=== PATIENT | male | born 1955 ===

== ENCOUNTER 2021-03-20 16:08 | Inpatient (IN) | payer MEDICARE, OTHER ==
[~2021-03-20] VITALS: Ht 180.3 cm; Wt 98.7 kg
[2021-03-20] MEDS ORDERED: PROPOFOL 100 ML IV ONE (20:43)
[2021-03-20] MEDS ORDERED: FENTANYL PF 100 MCG/2ML IVPush PRN ×2 (21:30)
[2021-03-20] MEDS ORDERED: AMPICILLIN/SULBACTAM 3 GM in SODIUM CHLORIDE 0.9% 100 ML IV SCH (21:30)
[2021-03-20] MEDS ORDERED: D5%-0.45NACL+KCL 20MEQ 1,000 ML IV SCH (21:30)
[2021-03-20] MEDS ORDERED: SODIUM CHLORIDE 0.9% 1,000ML IVBOLUS ONE (21:30)
[2021-03-20] MEDS ORDERED: BISACODYL 10 MG SUPP PR PRN (21:30)
[2021-03-20] MEDS ORDERED: ONDANSETRON 2MG/ML, 2ML IV PRN (21:30)
[2021-03-20] MEDS ORDERED: PLEASE ENTER ALLERGIES MC SCH (21:30)
[2021-03-20] MEDS ORDERED: NOREPINEPHRINE 8 MG in SODIUM CHLORIDE 0.9% 242 ML IV PRN (21:30)
[2021-03-20] MEDS ORDERED: PHARMACY MAY ADJ FOR RENAL FX MC SCH (21:30)
[2021-03-20] MEDS ORDERED: DEXTROSE 50%, 50ML SYRINGE IVPush PRN (21:30)
[2021-03-20] MEDS ORDERED: ACETAMINOPHEN 325 MG TABLET PO PRN (21:30)
[2021-03-20] MEDS ORDERED: DEXTROSE 4 GM TAB.CHEW PO PRN (21:30)
[2021-03-20] MEDS ORDERED: PHARMACY MAY ADJ FOR RENAL FX MC PRN (21:30)
[2021-03-20] MEDS ORDERED: GLUCAGON 1 MG IM PRN (21:30)
[2021-03-20] MEDS ORDERED: PLEASE ENTER HEIGHT AND WEIGHT MC SCH (21:30)
[2021-03-20 21:31] LABS: MEAN CORPUSCULAR HGB CONC 34.3 g/dL (33.2-36.2); MEAN PLATELET VOLUME 9.8 fL (7.4-10.4); PLATELET COUNT 264 x10^3/uL (130-400); RED BLOOD COUNT 3.95 x10^6/uL (4.38-5.82)
[2021-03-20 21:40] LABS: CHLORIDE 96 mmol/L (98-107)
[2021-03-20 21:41] LABS: ALANINE AMINOTRANSFERASE 15 U/L (12-78); ALBUMIN 1.9 g/dL (3.4-5.0); CALCIUM 8.1 mg/dL (8.5-10.1)
[2021-03-20 21:44] LABS: ALKALINE PHOSPHATASE 117 U/L (45-117); BILIRUBIN,TOTAL 0.5 mg/dL (0.2-1.0); CREATINE KINASE, TOTAL 78 U/L (39-308); TOTAL PROTEIN 6.2 g/dL (6.4-8.2); TRIGLYCERIDES 221 mg/dL (50-200)
[2021-03-20 21:48] LABS: ANION GAP 10 mmol/L (5-15)
[2021-03-20] MEDS ORDERED: PIPERACILLIN/TAZO 3.375 GM in DEXTROSE 5% 50 ML IV SCH (22:00)
[2021-03-20] MEDS ORDERED: LACTATED RINGERS 1,000 ML IVBOLUS ONE (22:00)
[2021-03-20] MEDS: SODIUM CHLORIDE 0.9% 1,000 ML IV SCH (22:02)
[2021-03-20] MEDS: PANTOPRAZOLE 40 MG IV IVPush SCH (22:11)
[2021-03-20] MEDS: SODIUM CHLORIDE FLUSH 10ML SYR IVF SCH (22:12)
[2021-03-20] MEDS: REGULAR INSULIN 100 UNITS in SODIUM CHLORIDE 0.9% 99 ML IV PRN (22:15)
[2021-03-20] MEDS: PROPOFOL 100 ML IV PRN (22:22)
[2021-03-20 22:25] LABS: BAND#(MANUAL) 2.52 x10^3/uL; BANDS%(MANUAL) 10 % (0-7); LYMPH#(MANUAL) 1.01 x10^3/uL (1-3.4); LYMPHS% (MANUAL) 4 % (22-44); MONOS#(MANUAL) 1.26 x10^3/uL (0.3-2.7); MONOS% (MANUAL) 5 % (2-9); SEG#(MANUAL) 20.41 x10^3/uL (1.8-6.8); SEGS% (MANUAL) 81 % (42-75)
[2021-03-20 22:26] LABS: ANISOCYTOSIS 1+; ECHINOCYTES 1+
[2021-03-20 22:27] LABS: <PLATELET ESTIMATE> ADEQUATE; LARGE PLATELETS 1+
[2021-03-20] MEDS: PIPERACILLIN/TAZO 2.25 GM in DEXTROSE 5% 50 ML IVPB SCH (22:48)
[2021-03-20] MEDS ORDERED: CALCIUM GLUCONATE 4.6 MEQ in SODIUM CHLORIDE 0.9% 50 ML IV ONE (23:00)
[2021-03-20 23:04] LABS: INTERNATIONAL NORMALIZED RATIO 1.04 (0.93-1.1); PROTHROMBIN TIME 11.1 Seconds (9.6-11.5)
[2021-03-20] MEDS ORDERED: PARO30TA45 PO (23:52)
[2021-03-21 00:18] LABS: MICROSCOPIC INDICATED
[2021-03-21] MEDS: NOREPINEPHRINE 8 MG in SODIUM CHLORIDE 0.9% 242 ML IV PRN ×2 (00:49→16:20)
[2021-03-21 01:24] LABS: ANION GAP 12 mmol/L (5-15); CALCIUM 7.6 mg/dL (8.5-10.1); CHLORIDE 99 mmol/L (98-107); CREATININE 2.04 mg/dL (0.7-1.3)
[2021-03-21] MEDS ORDERED: LACTATED RINGERS 1,000 ML IVBOLUS ONE ×2 (02:30→05:30)
[2021-03-21] MEDS: SODIUM CHLORIDE 0.9% 1,000 ML IV SCH ×2 (03:54→23:04)
[2021-03-21 04:37] LABS: MEAN CORPUSCULAR HEMOGLOBIN 29.9 pg (27.5-34.5); MEAN CORPUSCULAR HGB CONC 34.2 g/dL (33.2-36.2); MEAN PLATELET VOLUME 9.5 fL (7.4-10.4); PLATELET COUNT 191 x10^3/uL (130-400); RED BLOOD COUNT 3.37 x10^6/uL (4.38-5.82); RED CELL DISTRIBUTION WIDTH 15.2 % (9.4-14.8)
[2021-03-21] MEDS: PIPERACILLIN/TAZO 2.25 GM in DEXTROSE 5% 50 ML IVPB SCH (04:43)
[2021-03-21 04:48] LABS: ANION GAP 9 mmol/L (5-15); CALCIUM 7.4 mg/dL (8.5-10.1); CHLORIDE 102 mmol/L (98-107); CREATININE 1.79 mg/dL (0.7-1.3)
[2021-03-21 05:44] LABS: BAND#(MANUAL) 3.01 x10^3/uL; BANDS%(MANUAL) 17 % (0-7); LYMPH#(MANUAL) 0.89 x10^3/uL (1-3.4); LYMPHS% (MANUAL) 5 % (22-44); MONOS#(MANUAL) 1.06 x10^3/uL (0.3-2.7); MONOS% (MANUAL) 6 % (2-9); SEG#(MANUAL) 12.74 x10^3/uL (1.8-6.8); SEGS% (MANUAL) 72 % (42-75)
[2021-03-21 05:45] LABS: <PLATELET ESTIMATE> ADEQUATE; <PLT MORPHOLOGY> NORMAL PLT MORPH; ANISOCYTOSIS 1+
[2021-03-21] MEDS: PROPOFOL 100 ML IV PRN ×2 (06:51→21:47)
[2021-03-21 07:25] LABS: % IRON SATURATION 13 % (20-55); CREATINE KINASE, TOTAL 56 U/L (39-308); IRON LEVEL 19 mcg/dL (65-175); TOTAL IRON BINDING CAPACITY 142 mcg/dL (250-450)
[2021-03-21 07:27] LABS: C-REACTIVE PROTEIN, QUANT > 19.00 mg/dL (0.02-0.49)
[2021-03-21 07:41] LABS: HCT (SEDRATE) 29.4 % (39.2-51.8)
[2021-03-21] MEDS: REGULAR INSULIN 100 UNITS in SODIUM CHLORIDE 0.9% 99 ML IV PRN ×2 (08:47→20:27)
[2021-03-21] MEDS: HEPARIN 5,000 UNITS/ML, 1ML SQ SCH ×2 (08:48→16:39)
[2021-03-21] MEDS: PANTOPRAZOLE 40 MG IV IVPush SCH ×2 (08:48→21:47)
[2021-03-21] MEDS: SODIUM CHLORIDE FLUSH 10ML SYR IVF SCH ×3 (08:48→22:11)
[2021-03-21] MEDS ORDERED: PANTOPRAZOLE 40 MG IV IVPush SCH (09:00)
[2021-03-21 09:17] LABS: ANION GAP 8 mmol/L (5-15); CALCIUM 7.8 mg/dL (8.5-10.1); CHLORIDE 103 mmol/L (98-107)
[2021-03-21] MEDS: PIPERACILLIN/TAZO 3.375 GM in DEXTROSE 5% 50 ML IV SCH ×3 (09:42→19:27)
--- NOTE | 2021-03-21 11:25 | NUR ---
IF TUBE FEED RECOMMENDATION NEEDED: recommend Vital HP: goal on propofol: 55 ml/hr, OFF propofol: 65 ml/hr Addendum: 03/21/21 at [address] Amended: Links added.
[2021-03-21] MEDS ORDERED: INSULIN GLARGINE 100 UNITS/ML, PEN SQ-INSULIN ONE (12:30)
[2021-03-21] MEDS ORDERED: DEXTROSE 50%, 50ML SYRINGE IVPush PRN (12:30)
[2021-03-21] MEDS ORDERED: GLUCAGON 1 MG IM PRN (12:30)
[2021-03-21] MEDS ORDERED: DEXTROSE 4 GM TAB.CHEW PO PRN (12:30)
[2021-03-21] MEDS ORDERED: POTASSIUM CHLORIDE 10 MEQ in LACTATED RINGERS 1,000 ML IV SCH (13:00)
--- NOTE | 2021-03-21 13:11 | NUR ---
Tube Feeds: Vital HP: goal ON propofol: 55 ml/hr, OFF propofol: 65 ml/hr Addendum: 03/21/21 at [address] Amended: Links added.
[2021-03-21] MEDS ORDERED: INSULIN LISPRO 100 UNITS/ML, PEN ONE (13:16)
[2021-03-21] MEDS: MIDODRINE 5 MG TABLET PO SCH ×2 (13:26→21:47)
[2021-03-21] MEDS ORDERED: INSULIN LISPRO 100 UNITS/ML, PEN SQ-INSULIN SCH ×2 (16:00→21:00)
[2021-03-21 17:00] LABS: ANION GAP 14 mmol/L (5-15); CALCIUM 7.8 mg/dL (8.5-10.1); CHLORIDE 104 mmol/L (98-107); CREATININE 1.55 mg/dL (0.7-1.3)
[2021-03-21 19:03] LABS: ACETONE, SERUM Large (80mg/dL) (Negative)
[2021-03-21] MEDS: D5%-0.45NACL+KCL 20MEQ 1,000 ML IV SCH (20:25)
[2021-03-21] MEDS ORDERED: INSULIN GLARGINE 100 UNITS/ML, PEN SQ-INSULIN SCH (21:00)
[2021-03-21 22:12] LABS: ANION GAP 11 mmol/L (5-15); CALCIUM 7.9 mg/dL (8.5-10.1); CHLORIDE 105 mmol/L (98-107)
[2021-03-21] MEDS ORDERED: POTASSIUM CHLORIDE 20 MEQ PACKET PO/NG ONE (23:00)
[2021-03-22] MEDS: HEPARIN 5,000 UNITS/ML, 1ML SQ SCH ×3 (00:40→17:00)
[2021-03-22 00:45] LABS: MICROSCOPIC INDICATED
[2021-03-22 00:52] LABS: CREATININE,URINE RANDOM 47.5 mg/dL
[2021-03-22] MEDS: PIPERACILLIN/TAZO 3.375 GM in DEXTROSE 5% 50 ML IV SCH ×4 (01:37→19:44)
[2021-03-22 02:38] LABS: ANION GAP 6 mmol/L (5-15); CALCIUM 7.8 mg/dL (8.5-10.1); CHLORIDE 108 mmol/L (98-107); CREATININE 1.48 mg/dL (0.7-1.3)
[2021-03-22] MEDS ORDERED: POTASSIUM CHLORIDE 20 MEQ PACKET NG ONE (03:30)
[2021-03-22] MEDS: SODIUM CHLORIDE 0.9% 1,000 ML IV SCH (04:00)
[2021-03-22 05:46] LABS: MEAN CORPUSCULAR HEMOGLOBIN 29.6 pg (27.5-34.5); MEAN CORPUSCULAR HGB CONC 33.2 g/dL (33.2-36.2); MEAN PLATELET VOLUME 9.9 fL (7.4-10.4); PLATELET COUNT 239 x10^3/uL (130-400); RED CELL DISTRIBUTION WIDTH 15.4 % (9.4-14.8)
[2021-03-22 05:55] LABS: ALBUMIN 1.5 g/dL (3.4-5.0); ANION GAP 7 mmol/L (5-15); CHLORIDE 108 mmol/L (98-107)
[2021-03-22 05:59] LABS: ALANINE AMINOTRANSFERASE 11 U/L (12-78); ALKALINE PHOSPHATASE 106 U/L (45-117); BILIRUBIN,TOTAL 0.5 mg/dL (0.2-1.0); CREATININE 1.42 mg/dL (0.7-1.3); TOTAL PROTEIN 5.4 g/dL (6.4-8.2)
[2021-03-22 06:22] LABS: BAND#(MANUAL) 0.54 x10^3/uL; BANDS%(MANUAL) 3 % (0-7); LYMPHS% (MANUAL) 16 % (22-44); MONOS#(MANUAL) 0.36 x10^3/uL (0.3-2.7); MONOS% (MANUAL) 2 % (2-9); SEGS% (MANUAL) 79 % (42-75)
[2021-03-22 06:24] LABS: <PLATELET ESTIMATE> ADEQUATE; <PLT MORPHOLOGY> NORMAL PLT MORPH; ANISOCYTOSIS 1+
[2021-03-22] MEDS: D5%-0.45NACL+KCL 20MEQ 1,000 ML IV SCH (06:37)
[2021-03-22] MEDS: REGULAR INSULIN 100 UNITS in SODIUM CHLORIDE 0.9% 99 ML IV PRN (06:39)
[2021-03-22] MEDS: SODIUM CHLORIDE FLUSH 10ML SYR IVF SCH ×3 (09:00→21:15)
[2021-03-22] MEDS: PANTOPRAZOLE 40 MG IV IVPush SCH ×2 (09:37→21:14)
[2021-03-22] MEDS: MIDODRINE 5 MG TABLET PO SCH ×3 (09:38→21:14)
[2021-03-22] MEDS: ALBUMIN HUMAN 25%, 25GM/100ML IV SCH ×2 (09:38→17:59)
[2021-03-22 10:44] LABS: ANION GAP 7 mmol/L (5-15); CALCIUM 7.9 mg/dL (8.5-10.1); CHLORIDE 109 mmol/L (98-107)
[2021-03-22 11:09] LABS: ACETONE, SERUM Negative (Negative)
[2021-03-22] MEDS: INSULIN LISPRO 100 UNITS/ML, PEN SQ-INSULIN SCH ×3 (12:00→21:15)
[2021-03-22] MEDS ORDERED: INSULIN GLARGINE 100 UNITS/ML, PEN ONE (12:08)
[2021-03-22] MEDS: LACTATED RINGERS 1,000 ML IV SCH (12:19)
[2021-03-22] MEDS ORDERED: INSULIN GLARGINE 100 UNITS/ML, PEN SQ-INSULIN ONE (13:00)
[2021-03-22 15:12] LABS: ANION GAP 8 mmol/L (5-15); CALCIUM 7.9 mg/dL (8.5-10.1); CHLORIDE 109 mmol/L (98-107); CREATININE 1.23 mg/dL (0.7-1.3)
[2021-03-22] MEDS ORDERED: INSULIN LISPRO 100 UNITS/ML, PEN SQ-INSULIN SCH (15:30)
[2021-03-22 16:41] LABS: CLOSTRIDIUM DIFFICILE ANTIGEN NEGATIVE; CLOSTRIDIUM DIFFICILE TOXIN NEGATIVE (Negative)
[2021-03-22] MEDS ORDERED: DIPHENOXYLATE/ATROPINE TABLET PO PRN (17:00)
[2021-03-22] MEDS ORDERED: INSULIN GLARGINE 100 UNITS/ML, PEN SQ-INSULIN SCH (21:00)
[2021-03-23] MEDS: HEPARIN 5,000 UNITS/ML, 1ML SQ SCH ×3 (01:07→17:53)
[2021-03-23] MEDS: ALBUMIN HUMAN 25%, 25GM/100ML IV SCH ×2 (01:07→09:10)
[2021-03-23] MEDS: PIPERACILLIN/TAZO 3.375 GM in DEXTROSE 5% 50 ML IV SCH ×4 (02:25→20:50)
[2021-03-23] MEDS: MIDODRINE 5 MG TABLET PO SCH ×4 (02:33→20:33)
[2021-03-23 04:33] LABS: BASOPHILS % (AUTO) 1 % (0-1); EOSINOPHILS % (AUTO) 1 % (1-7); LYMPHOCYTES % (AUTO) 12 % (22-44); MEAN CORPUSCULAR HEMOGLOBIN 29.7 pg (27.5-34.5); MEAN CORPUSCULAR HGB CONC 33.4 g/dL (33.2-36.2); MEAN PLATELET VOLUME 9.6 fL (7.4-10.4); MONOCYTES % (AUTO) 9 % (2-9); NEUTROPHILS % (AUTO) 78 % (42-75); PLATELET COUNT 221 x10^3/uL (130-400); RED BLOOD COUNT 3.24 x10^6/uL (4.38-5.82); RED CELL DISTRIBUTION WIDTH 15.5 % (9.4-14.8)
[2021-03-23 04:48] LABS: ANION GAP 6 mmol/L (5-15); CALCIUM 7.5 mg/dL (8.5-10.1); CHLORIDE 110 mmol/L (98-107)
[2021-03-23 04:49] LABS: CREATININE 1.23 mg/dL (0.7-1.3)
[2021-03-23] MEDS ORDERED: INSULIN LISPRO 100 UNITS/ML, PEN SQ-INSULIN SCH (07:00)
[2021-03-23] MEDS: INSULIN LISPRO 100 UNITS/ML, PEN SQ-INSULIN SCH ×7 (07:36→20:34)
[2021-03-23] MEDS: INSULIN GLARGINE 100 UNITS/ML, PEN SQ-INSULIN SCH ×2 (07:37→20:35)
[2021-03-23] MEDS: PANTOPRAZOLE 40 MG IV IVPush SCH (09:10)
[2021-03-23] MEDS: SODIUM CHLORIDE FLUSH 10ML SYR IVF SCH ×2 (09:11→20:33)
[2021-03-23] MEDS: PAROXETINE 20 MG TABLET PO SCH (09:11)
[2021-03-23] MEDS: LACTATED RINGERS 1,000 ML IV SCH (09:12)
[2021-03-23 15:40] VITALS: BP 129/63
[2021-03-23 18:40] VITALS: BP 124/69
[2021-03-23] MEDS: TAMSULOSIN 0.4 MG CAP.ER.24H PO SCH (20:33)
[2021-03-23] MEDS ORDERED: FAMOTIDINE 20 MG TABLET PO SCH (21:00)
[2021-03-24] MEDS: HEPARIN 5,000 UNITS/ML, 1ML SQ SCH ×3 (00:30→17:20)
[2021-03-24] MEDS: PAROXETINE 20 MG TABLET PO SCH (00:30)
[2021-03-24 02:00] VITALS: BP 117/68
[2021-03-24 02:26] VITALS: BP 113/73
[2021-03-24] MEDS: PIPERACILLIN/TAZO 3.375 GM in DEXTROSE 5% 50 ML IV SCH ×2 (03:00→09:23)
[2021-03-24] MEDS: MIDODRINE 5 MG TABLET PO SCH ×4 (03:00→21:00)
[2021-03-24 06:41] LABS: BASOPHILS % (AUTO) 1 % (0-1); EOSINOPHILS % (AUTO) 2 % (1-7); LYMPHOCYTES % (AUTO) 20 % (22-44); MEAN CORPUSCULAR HEMOGLOBIN 29.3 pg (27.5-34.5); MEAN CORPUSCULAR HGB CONC 32.8 g/dL (33.2-36.2); MEAN PLATELET VOLUME 9.1 fL (7.4-10.4); MONOCYTES % (AUTO) 12 % (2-9); NEUTROPHILS % (AUTO) 65 % (42-75); PLATELET COUNT 249 x10^3/uL (130-400); RED BLOOD COUNT 3.44 x10^6/uL (4.38-5.82); RED CELL DISTRIBUTION WIDTH 15.2 % (9.4-14.8)
[2021-03-24 06:54] LABS: ANION GAP 7 mmol/L (5-15); CALCIUM 7.7 mg/dL (8.5-10.1); CHLORIDE 109 mmol/L (98-107); CREATININE 1.01 mg/dL (0.7-1.3)
[2021-03-24] MEDS: INSULIN LISPRO 100 UNITS/ML, PEN SQ-INSULIN SCH ×6 (07:00→22:30)
[2021-03-24 07:50] VITALS: BP 117/66
[2021-03-24] MEDS: INSULIN GLARGINE 100 UNITS/ML, PEN SQ-INSULIN SCH ×2 (08:35→22:30)
[2021-03-24] MEDS: SODIUM CHLORIDE FLUSH 10ML SYR IVF SCH ×2 (08:41→21:00)
[2021-03-24] MEDS: ERTAPENEM 1 GM in SODIUM CHLORIDE 0.9% 50 ML IV SCH (11:45)
[2021-03-24 15:18] VITALS: BP 111/57
[2021-03-24 20:54] VITALS: BP 121/65
[2021-03-24] MEDS: FAMOTIDINE 20 MG TABLET PO SCH (21:00)
[2021-03-24] MEDS: TAMSULOSIN 0.4 MG CAP.ER.24H PO SCH (21:00)
[2021-03-25] VITALS (7 sets, daily range): BP systolic 108–127; BP diastolic 64–80
[2021-03-25] MEDS: HEPARIN 5,000 UNITS/ML, 1ML SQ SCH ×3 (01:28→18:54)
[2021-03-25] MEDS: MIDODRINE 5 MG TABLET PO SCH ×4 (03:17→21:59)
[2021-03-25 05:57] LABS: BASOPHILS % (AUTO) 3 % (0-1); EOSINOPHILS % (AUTO) 2 % (1-7); LYMPHOCYTES % (AUTO) 23 % (22-44); MEAN CORPUSCULAR HEMOGLOBIN 29.7 pg (27.5-34.5); MEAN CORPUSCULAR HGB CONC 33.3 g/dL (33.2-36.2); MEAN PLATELET VOLUME 9.2 fL (7.4-10.4); MONOCYTES % (AUTO) 10 % (2-9); NEUTROPHILS % (AUTO) 63 % (42-75); PLATELET COUNT 316 x10^3/uL (130-400); RED BLOOD COUNT 3.54 x10^6/uL (4.38-5.82); RED CELL DISTRIBUTION WIDTH 15.1 % (9.4-14.8)
[2021-03-25] MEDS: INSULIN LISPRO 100 UNITS/ML, PEN SQ-INSULIN SCH ×7 (08:40→21:58)
[2021-03-25] MEDS ORDERED: METOPROLOL 1 MG/ML, 5ML ONE (08:47)
[2021-03-25] MEDS: PAROXETINE 20 MG TABLET PO SCH (08:57)
[2021-03-25] MEDS: FAMOTIDINE 20 MG TABLET PO SCH ×2 (08:57→21:59)
[2021-03-25] MEDS ORDERED: METOPROLOL 1 MG/ML, 5ML IVPush ONE (09:00)
[2021-03-25] MEDS: SODIUM CHLORIDE FLUSH 10ML SYR IVF SCH ×2 (11:23→21:00)
[2021-03-25] MEDS: ERTAPENEM 1 GM in SODIUM CHLORIDE 0.9% 50 ML IV SCH (11:23)
[2021-03-25] MEDS: INSULIN GLARGINE 100 UNITS/ML, PEN SQ-INSULIN SCH ×2 (11:24→21:59)
[2021-03-25] MEDS: TAMSULOSIN 0.4 MG CAP.ER.24H PO SCH (21:59)
[2021-03-26] MEDS: HEPARIN 5,000 UNITS/ML, 1ML SQ SCH ×3 (00:54→16:59)
[2021-03-26 00:57] VITALS: BP 136/81
[2021-03-26] MEDS: MIDODRINE 5 MG TABLET PO SCH ×4 (03:00→21:45)
[2021-03-26 04:58] VITALS: BP 131/74
[2021-03-26] MEDS ORDERED: LORazepam 2 MG/ML, 1ML IVPush ONE (05:30)
[2021-03-26 05:51] LABS: BASOPHILS % (AUTO) 0 % (0-1); EOSINOPHILS % (AUTO) 2 % (1-7); LYMPHOCYTES % (AUTO) 20 % (22-44); MEAN CORPUSCULAR HEMOGLOBIN 30.5 pg (27.5-34.5); MEAN CORPUSCULAR HGB CONC 34.1 g/dL (33.2-36.2); MEAN PLATELET VOLUME 8.5 fL (7.4-10.4); MONOCYTES % (AUTO) 9 % (2-9); NEUTROPHILS % (AUTO) 69 % (42-75); PLATELET COUNT 371 x10^3/uL (130-400); RED BLOOD COUNT 3.58 x10^6/uL (4.38-5.82); RED CELL DISTRIBUTION WIDTH 15.5 % (9.4-14.8)
[2021-03-26 06:19] LABS: ANION GAP 4 mmol/L (5-15); CALCIUM 7.8 mg/dL (8.5-10.1); CHLORIDE 107 mmol/L (98-107); CREATININE 0.78 mg/dL (0.7-1.3)
[2021-03-26 06:37] VITALS: BP 115/71
[2021-03-26] MEDS: DOXAZOSIN 2MG TABLET PO SCH (08:33)
[2021-03-26] MEDS: PAROXETINE 20 MG TABLET PO SCH (08:34)
[2021-03-26] MEDS: FAMOTIDINE 20 MG TABLET PO SCH ×2 (08:34→21:43)
[2021-03-26] MEDS: SODIUM CHLORIDE FLUSH 10ML SYR IVF SCH ×2 (09:03→21:00)
[2021-03-26] MEDS: INSULIN GLARGINE 100 UNITS/ML, PEN SQ-INSULIN SCH ×2 (09:04→21:43)
[2021-03-26] MEDS: INSULIN LISPRO 100 UNITS/ML, PEN SQ-INSULIN SCH ×4 (09:05→21:00)
[2021-03-26] MEDS: ERTAPENEM 1 GM in SODIUM CHLORIDE 0.9% 50 ML IV SCH (11:30)
[2021-03-26 13:00] VITALS: BP 100/66
[2021-03-26 17:07] VITALS: BP 121/75
[2021-03-26] MEDS: TAMSULOSIN 0.4 MG CAP.ER.24H PO SCH (21:43)
[2021-03-26 21:45] VITALS: BP 124/74
[2021-03-27] MEDS: HEPARIN 5,000 UNITS/ML, 1ML SQ SCH ×3 (01:22→17:08)
[2021-03-27 03:08] VITALS: BP 109/67
[2021-03-27] MEDS: MIDODRINE 5 MG TABLET PO SCH ×4 (03:23→21:57)
[2021-03-27] MEDS ORDERED: LORazepam 2 MG/ML, 1ML IVPush ONE (03:30)
[2021-03-27 05:39] LABS: BASOPHILS % (AUTO) 0 % (0-1); EOSINOPHILS % (AUTO) 2 % (1-7); LYMPHOCYTES % (AUTO) 25 % (22-44); MEAN CORPUSCULAR HEMOGLOBIN 30.4 pg (27.5-34.5); MEAN CORPUSCULAR HGB CONC 33.9 g/dL (33.2-36.2); MEAN PLATELET VOLUME 8.5 fL (7.4-10.4); MONOCYTES % (AUTO) 7 % (2-9); NEUTROPHILS % (AUTO) 66 % (42-75); PLATELET COUNT 407 x10^3/uL (130-400); RED BLOOD COUNT 3.32 x10^6/uL (4.38-5.82); RED CELL DISTRIBUTION WIDTH 15.4 % (9.4-14.8)
[2021-03-27 06:28] VITALS: BP 118/63
[2021-03-27] MEDS ORDERED: hydrOXyzine 10MG TABLET PO PRN (07:00)
[2021-03-27] MEDS: INSULIN LISPRO 100 UNITS/ML, PEN SQ-INSULIN SCH ×4 (07:00→21:00)
[2021-03-27] MEDS: DOXAZOSIN 2MG TABLET PO SCH (09:07)
[2021-03-27] MEDS: FAMOTIDINE 20 MG TABLET PO SCH ×2 (09:07→21:57)
[2021-03-27] MEDS: PAROXETINE 20 MG TABLET PO SCH (09:07)
[2021-03-27] MEDS: SODIUM CHLORIDE FLUSH 10ML SYR IVF SCH ×2 (09:12→21:59)
[2021-03-27] MEDS: INSULIN GLARGINE 100 UNITS/ML, PEN SQ-INSULIN SCH ×2 (09:16→21:58)
[2021-03-27] MEDS: ERTAPENEM 1 GM in SODIUM CHLORIDE 0.9% 50 ML IV SCH (11:19)
[2021-03-27] MEDS ORDERED: FLUMAZENIL 0.1 MG/1 ML, 5ML IVPush ONE (12:30)
[2021-03-27 14:30] VITALS: BP 118/71
[2021-03-27 17:14] VITALS: BP 118/71
[2021-03-27 17:18] VITALS: BP 127/77
[2021-03-27 19:24] VITALS: BP 126/74
[2021-03-27] MEDS: TAMSULOSIN 0.4 MG CAP.ER.24H PO SCH (21:57)
[2021-03-28 01:29] VITALS: BP 135/78
[2021-03-28] MEDS: HEPARIN 5,000 UNITS/ML, 1ML SQ SCH ×2 (01:34→08:33)
[2021-03-28 06:35] VITALS: BP 138/77
[2021-03-28] MEDS: INSULIN LISPRO 100 UNITS/ML, PEN SQ-INSULIN SCH ×2 (07:00→11:00)
[2021-03-28] MEDS: PAROXETINE 20 MG TABLET PO SCH (08:32)
[2021-03-28] MEDS: MIDODRINE 5 MG TABLET PO SCH (08:32)
[2021-03-28] MEDS: FAMOTIDINE 20 MG TABLET PO SCH (08:32)
[2021-03-28] MEDS: DOXAZOSIN 2MG TABLET PO SCH (08:32)
[2021-03-28] MEDS: SODIUM CHLORIDE FLUSH 10ML SYR IVF SCH (08:32)
[2021-03-28] MEDS: INSULIN GLARGINE 100 UNITS/ML, PEN SQ-INSULIN SCH (08:35)
[2021-03-28] MEDS: ERTAPENEM 1 GM in SODIUM CHLORIDE 0.9% 50 ML IV SCH (11:11)
[2021-03-28 12:25] VITALS: BP 112/63
[2021-03-28] MEDS ORDERED: HEPA50002 SQ (12:47)
[2021-03-28] MEDS ORDERED: DOXA2TAB9 PO (12:47)
[2021-03-28] MEDS ORDERED: DIPH1TAB6 PO (12:47)
[2021-03-28] MEDS ORDERED: HYDR-2995 PO (12:47)
[2021-03-28] MEDS ORDERED: ACET325T26 PO (12:47)
[2021-03-28] MEDS ORDERED: TAMS-11 PO (12:47)
[2021-03-28] MEDS ORDERED: MIDO5TAB9 PO (12:47)
== END 2021-03-28 15:15 | DRG 871 ==
LOC: CCU 20:32 → 5SO 03-23 15:10
PROVIDERS: ADMIT Hospitalist; ATTEND Internal Medicine
PROC: 0T9B70Z Drainage of Bladder with Drainage Device, Via Natural or Artificial Opening (ICD-10-PCS; principal; 2021-03-20)
PROC: 5A1945Z Respiratory Ventilation, 24-96 Consecutive Hours (ICD-10-PCS; 2021-03-20)
PROC: 0BH17EZ Insertion of Endotracheal Airway into Trachea, Via Natural or Artificial Opening (ICD-10-PCS; 2021-03-20)
PROC: 5A09357 Assistance with Respiratory Ventilation, Less than 24 Consecutive Hours, Continuous Positive Airway Pressure (ICD-10-PCS; 2021-03-22)
DX: A41.51 Sepsis due to Escherichia coli [E. coli] (principal); E11.10 Type 2 diabetes mellitus with ketoacidosis without coma; G93.41 Metabolic encephalopathy; J18.9 Pneumonia, unspecified organism; J96.00 Acute respiratory failure, unspecified whether with hypoxia or hypercapnia; N17.0 Acute kidney failure with tubular necrosis; R65.21 Severe sepsis with septic shock; E87.1 Hypo-osmolality and hyponatremia; I25.3 Aneurysm of heart; I50.32 Chronic diastolic (congestive) heart failure; N12 Tubulo-interstitial nephritis, not specified as acute or chronic; Z16.12 Extended spectrum beta lactamase (ESBL) resistance; Z99.11 Dependence on respirator [ventilator] status; D64.9 Anemia, unspecified; E11.621 Type 2 diabetes mellitus with foot ulcer; E83.51 Hypocalcemia; F32.9 Major depressive disorder, single episode, unspecified; F41.9 Anxiety disorder, unspecified; I11.0 Hypertensive heart disease with heart failure; I48.91 Unspecified atrial fibrillation; L03.031 Cellulitis of right toe; L97.529 Non-pressure chronic ulcer of other part of left foot with unspecified severity; N40.0 Benign prostatic hyperplasia without lower urinary tract symptoms; R31.29 Other microscopic hematuria; J43.9 Emphysema, unspecified; E11.51 Type 2 diabetes mellitus with diabetic peripheral angiopathy without gangrene; Z82.49 Family history of ischemic heart disease and other diseases of the circulatory system
CPT/HCPCS: 36415; 36600; 71045; 74176; 76700; 80048; 80053; 81001; 82010; 82330; 82550; 82570; 82607; 82728; 82803; 82962; 83540; 83550; 83605; 83690; 83735; 83930; 84100; 84133; 84145; 84156; 84300; 84443; 84478; 85025; 85610; 85651; 86140; 87040; 87070; 87077; 87081; 87086; 87186; 87205; 87324; 93005; 93306; 94002; 94003; G0378; J0610; J1335; J1644; J1815; J2543; J2704; J3010; J3480; P9047; C9113; J2060; J7030; J7050; J7120